=== PATIENT | female | born 1980 | race American Indian/Alaskan Native ===

== ENCOUNTER 2016-12-18 18:14 | Emergency (ER) | payer SELFPAY ==
[2016-12-18 19:39] LABS: Eosinophils % (Auto) 0.9 % (0.0-4.3)
[2016-12-18 19:43] LABS: Hematocrit 31.8 % (30.3-42.9); Hemoglobin 10.4 gm/dl (10.1-14.3); Mean Corpuscular Volume 70 fl (79-97); Red Blood Count 4.54 M/mm3 (3.65-5.03); White Blood Count 9.9 K/mm3 (4.5-11.0)
[2016-12-18 19:44] LABS: Mean Corpuscular HGB Conc 33 % (30-34); Mean Corpuscular Hemoglobin 23 pg (28-32)
[2016-12-18 19:45] LABS: Basophils % (Auto) 0.3 % (0.0-1.8); Platelet Count 463 K/mm3 (140-440); Red Cell Distribution Width 20.2 % (13.2-15.2)
[2016-12-18 20:21] LABS: Bacteria,Urine 1+ /HPF (Negative); Bilirubin,Urine NEG (Negative); Blood,Urine LG (Negative); Ketones,Urine TR mg/dL (Negative); Leukocyte Esterase,Urine NEG (Negative); Mucus,Urine 3+ /HPF; Nitrite,Urine NEG (Negative)
--- NOTE | 2016-12-18 21:52 | Emergency Department Report ---
ED Female HPI - General Chief complaint: Vaginal Bleeding Stated complaint: VAGINAL BLEEDING Time Seen by Provider: 12/18/16 21:26 Source: patient Mode of arrival: Ambulatory Limitations: No Limitations - History of Present Illness Initial comments: 36-year-old female here with complaint of sudden onset of vaginal bleeding. Patient states that she was cooking dinner around 7 PM and noticed a pain in her low pelvis. She had fairly heavy clot that she passed. She's had some bleeding since that time. She has not had to change a pad. She does not believe she is . She denies nausea no vomiting. Menstrual cycle was off this last month. She states she had a short cycle, typically she has cycles for approximately 6 days. This was only 3 days. MD Complaint: vaginal bleeding -: Sudden Location: suprapubic Radiation: non-radiating Severity: mild Quality: cramping Improves with: none Worsens with: none Are you Now?: No Associated Symptoms: vaginal bleeding - Related Data Allergies Allergy/AdvReac Type Severity Reaction Status Date / Time ketorolac tromethamine Allergy Unknown Verified 12/18/16 18:23 [From Toradol] acetaminophen [From Lortab] AdvReac Nausea Verified 12/18/16 18:23 hydrocodone bitartrate AdvReac Nausea Verified 12/18/16 18:23 [From Lortab] ED Review of Systems ROS: Stated complaint: VAGINAL BLEEDING Other details as noted in HPI Comment: All other systems reviewed and negative Constitutional: denies: chills, fever Eyes: denies: eye pain, eye discharge, vision change ENT: denies: ear pain, throat pain Respiratory: denies: cough, shortness of breath, wheezing Cardiovascular: denies: chest pain, palpitations Endocrine: no symptoms reported Gastrointestinal: denies: abdominal pain, nausea, diarrhea Genitourinary: abnormal menses. denies: urgency, dysuria, discharge Musculoskeletal: denies: back pain, joint swelling, arthralgia Skin: denies: rash, lesions Neurological: denies: headache, weakness, paresthesias Psychiatric: denies: anxiety, depression Hematological/Lymphatic: denies: easy bleeding, easy bruising ED Past Medical Hx - Past Medical History Previous Medical History?: No - Surgical History Past Surgical History?: No - Family History Family history: no significant - Social History Smoking Status: Current Every Day Smoker Substance Use Type: None ED Physical Exam - General Limitations: No Limitations General appearance: alert, in no apparent distress - Head Head exam: Present: atraumatic, normocephalic - Eye Eye exam: Present: normal appearance. Absent: scleral icterus, conjunctival injection - ENT ENT exam: Present: mucous membranes moist - Neck Neck exam: Present: normal inspection - Respiratory Respiratory exam: Present: normal lung sounds bilaterally. Absent: respiratory distress, wheezes, rales - Cardiovascular Cardiovascular Exam: Present: regular rate, normal rhythm. Absent: systolic murmur, diastolic murmur, rubs, gallop - GI/Abdominal GI/Abdominal exam: Present: soft, normal bowel sounds. Absent: distended, tenderness, guarding, rebound, rigid - External exam: Present: other (deferred by patient) - Extremities Exam Extremities exam: Present: normal inspection - Back Exam Back exam: Present: normal inspection - Neurological Exam Neurological exam: Present: alert, oriented X3 - Psychiatric Psychiatric exam: Present: normal affect, normal mood - Skin Skin exam: Present: warm, dry, intact, normal color. Absent: rash ED Course Vital Signs 12/18/16 18:30 Temperature 98.4 F Pulse Rate 73 Respiratory 16 Rate Blood Pressure 135/78 O2 Sat by Pulse 100 Oximetry ED Medical Decision Making - Lab Data Result diagrams: 12/18/16 19:00 Laboratory Results - last 24 hr 12/18/16 12/18/16 12/18/16 19:00 19:00 19:05 WBC 9.9 RBC 4.54 Hgb 10.4 Hct 31.8 MCV 70 L MCH 23 L MCHC 33 RDW 20.2 H Plt Count 463 H Lymph % (Auto) 35.4 H Sharkey % (Auto) 7.3 Eos % (Auto) 0.9 Baso % (Auto) 0.3 Lymph # 3.5 Sharkey # 0.7 Eos # 0.1 Baso # 0.0 Seg Neutrophils % 56.1 Seg Neutrophils # 5.6 HCG, Qual Negative Urine Color Urine Turbidity Urine pH Ur Specific [place] Urine Protein Urine Glucose (UA) Urine Ketones Urine Blood Urine Nitrite Urine Bilirubin Urine Urobilinogen Ur Leukocyte Esterase Urine WBC (Auto) Urine RBC (Auto) U Epithel Cells (Auto) Urine Bacteria (Auto) Urine Mucus Blood Type A POSITIVE Antibody Screen Negative 12/18/16 20:00 WBC RBC Hgb Hct MCV MCH MCHC RDW Plt Count Lymph % (Auto) Sharkey % (Auto) Eos % (Auto) Baso % (Auto) Lymph # Sharkey # Eos # Baso # Seg Neutrophils % Seg Neutrophils # HCG, Qual Urine Color Yellow Urine Turbidity Clear Urine pH 5.0 Ur Specific [place] 1.026 Urine Protein 100 mg/dl Urine Glucose (UA) Neg Urine Ketones Tr Urine Blood Lg Urine Nitrite Neg Urine Bilirubin Neg Urine Urobilinogen 4.0 Ur Leukocyte Esterase Neg Urine WBC (Auto) 10.0 H Urine RBC (Auto) 15.0 U Epithel Cells (Auto) 6.0 Urine Bacteria (Auto) 1+ Urine Mucus 3+ Blood Type Antibody Screen - Medical Decision Making 36-year-old female who presents here with irregular vaginal bleeding. She's had one heavy clot since approximately dinner time. She has not had a change pads since that time. She otherwise has no complaints. She appears otherwise well. Her hemoglobin and hematocrit are normal. She is not . Plan to discharge her with follow-up with [facility]. Portions of this chart were dictated with dictation software. There may be dictation errors contained within this note. Critical care attestation.: If time is entered above; I have spent that time in minutes in the direct care of this critically ill patient, excluding procedure time. ED Disposition Clinical Impression: Vaginal bleeding, abnormal Disposition: DC-01 TO HOME OR SELFCARE Is pt being admited?: No Condition: Stable Instructions: Dysmenorrhea (ED) Referrals: PRIMARY CAREMD [Primary Care Provider] - 3-5 Days KEV VARGHESE MD [Staff Physician] - 3-5 Days (Call for a follow-up appointment)
[2016-12-18 23:56] VITALS: BP 112/64
== END 2016-12-18 22:23 | disposition home or self-care (01) ==
LOC: ED 18:14
DX: N93.9 Abnormal uterine and vaginal bleeding, unspecified (principal); F17.200 Nicotine dependence, unspecified, uncomplicated; Z88.8 Allergy status to other drugs, medicaments and biological substances
CPT/HCPCS: 36415; 81001; 84703; 85025; 86850; 86900; 86901; 99283

== ENCOUNTER 2017-04-22 13:02 | Emergency (ER) | payer SELFPAY ==
[2017-04-22 13:15] VITALS: BP 124/79
[2017-04-22 15:36] LABS: Bilirubin,Urine NEG (Negative); Blood,Urine NEG (Negative); Color,Urine Yellow (Yellow); Mucus,Urine 1+ /HPF; Nitrite,Urine NEG (Negative)
== END 2017-04-22 20:15 | disposition left against medical advice (07) ==
LOC: ED 13:02
DX: R51 Headache (principal); Z53.21 Procedure and treatment not carried out due to patient leaving prior to being seen by health care provider
CPT/HCPCS: 81001